=== PATIENT | female | born 1995 | race Caucasian/White ===

== ENCOUNTER 2019-03-24 23:24 | Emergency (ER) | payer OTHER ==
[~2019-03-24] VITALS: Ht 167.6 cm; Wt 65.8 kg
[2019-03-25] MEDS ORDERED: CIPRO500 MG PO (03:07)
[2019-03-25] MEDS ORDERED: PYRIDIUM DS200 MG PO (03:07)
[2019-03-25] MEDS ORDERED: ZOFRAN4 MG PO (04:42)
== END 2019-03-25 04:52 | disposition home or self-care (01) ==
LOC: ER 23:24
DX: N39.0 Urinary tract infection, site not specified (principal)